=== PATIENT | female | born 2000 | race Two or more races ===

== ENCOUNTER 2019-12-13 11:24 | Emergency (ER) | payer BC, MEDICAID ==
[~2019-12-13] VITALS: Ht 172.7 cm; Wt 74.8 kg
[2019-12-13 11:36] VITALS: BP 142/80
== END 2019-12-13 12:21 | disposition home or self-care (01) ==
LOC: ER 11:24
DX: H66.92 Otitis media, unspecified, left ear (principal)
CPT/HCPCS: 81025